=== PATIENT | male | born 1985 | race Caucasian/White ===

== ENCOUNTER → 2025-01-31 | Outpatient (CLI) | payer MEDICAID, SELFPAY ==
--- NOTE | 2025-01-31 | XR_ITS ---
EXAMINATION: Testicular artery complete TECHNIQUE: Grayscale sonographic images testes, assessment arterial inflow venous outflow with Doppler spectral analysis color flow analysis COMPARISON: July 28, 2022 INDICATIONS: Right testicular lump 3 years increasing in size, epididymal cyst on prior ultrasound FINDINGS: Right testis 4.1 cm epididymis 3.5 cm Right epididymal cysts 31 mm, 6 mm Arterial flow the testicle. No testicular mass Mild hydrocele Left testis 4.4 cm epididymis 1.3 cm Arterial flow of the testicle. No testicular mass Mild hydrocele IMPRESSION: No testicular torsion or testicular mass Benign right epididymal cysts
== END | disposition home or self-care (01) ==
PROVIDERS: PCP Physician Assistant; Referring Provider Nurse Practitioner Family; Visit Provider Nurse Practitioner Family
DX: N50.3 Cyst of epididymis (principal)
CPT/HCPCS: 76870